=== PATIENT | male | born 1935 | race Caucasian/White ===

== ENCOUNTER → 2017-07-02 | Outpatient (CLI) | payer MEDICARE, OTHER | LOC: GMAJ 11:29 | PROVIDERS: ATTEND Family Medicine | DX: Z12.5 Encounter for screening for malignant neoplasm of prostate (principal) ==

== ENCOUNTER → 2017-10-29 | Outpatient (CLI) | payer OTHER | LOC: GMAJ 14:20 | PROVIDERS: ATTEND Family Medicine | DX: N40.1 Benign prostatic hyperplasia with lower urinary tract symptoms (principal) ==

== ENCOUNTER → 2018-10-14 | Outpatient (CLI) | payer MEDICARE, OTHER | LOC: GMAJ 10:17 | PROVIDERS: ATTEND Family Medicine | DX: N40.1 Benign prostatic hyperplasia with lower urinary tract symptoms (principal); E29.1 Testicular hypofunction ==

== ENCOUNTER 2018-11-17 05:43 | Day surgery (SDC) | payer MEDICARE, OTHER ==
[2018-11-17] MEDS ORDERED: MIDAZOLAM INJ 2 MG/2 ML VIAL ONE (11:51)
[2018-11-17] MEDS ORDERED: PROPARACAINE 0.5% OPHTH SOL 15 ML BTTL RIGHT_EYE ONE (11:53)
[2018-11-17] MEDS ORDERED: DEXAMETHASONE 0.1% OPHTH SOL 1 DROP RIGHT_EYE ONE ×2 (12:06→12:20)
[2018-11-17] MEDS ORDERED: LIDOCAINE 1% MPF 2 ML VIAL INJ ONE (12:06)
[2018-11-17] MEDS ORDERED: MOXIFLOXACIN HCL (OPHTH) 1 DROP DROPS RIGHT_EYE ONE ×2 (12:06→12:18)
[2018-11-17] MEDS ORDERED: BRIMONIDINE 0.2% OPHTH DROPS RIGHT_EYE ONE ×2 (12:07→12:20)
[2018-11-17] MEDS ORDERED: TOBRAMYCIN SULF 0.3 % OPHT SOL 1 DROP RIGHT_EYE ONE ×2 (12:07→12:20)
== END 2018-11-17 13:08 | disposition home or self-care (01) ==
LOC: AMB 05:43
PROVIDERS: ATTEND Ophthalmology
DX: H25.11 Age-related nuclear cataract, right eye (principal); Z79.01 Long term (current) use of anticoagulants; Z79.899 Other long term (current) drug therapy
CPT/HCPCS: 00142; 66984; J2250

== ENCOUNTER 2018-11-21 05:38 | Day surgery (SDC) | payer MEDICARE, OTHER ==
[2018-11-21] MEDS ORDERED: LIDOCAINE 1% 10 ML VIAL INJ ONE (07:00)
[2018-11-21] MEDS ORDERED: PROPOFOL 200 MG/20 ML VIAL IV ONE (07:00)
[2018-11-21] MEDS ORDERED: LACTATED RINGERS 1,000 ML ONE (08:14)
[2018-11-21] MEDS ORDERED: LACTATED RINGERS 1,000 ML BAG IV ONE (08:30)
[2018-11-21] MEDS ORDERED: MIDAZOLAM INJ 2 MG/2 ML VIAL ONE (08:39)
[2018-11-21] MEDS ORDERED: fentaNYL CITRATE INJ 50 MCG/ML AMP ONE (08:40)
[2018-11-21 11:45] VITALS: TEMP 96.6
[2018-11-21 11:46] VITALS: BP 123/64; O2SAT 97
--- NOTE | 2018-11-28 14:39 | OP ---
DATE OF PROCEDURE: 11/21/18 PREOPERATIVE DIAGNOSIS: 1. History of colonic polyps with recent changes in stool frequency and consistency. 2. Family history of colon cancer. 3. He had a colonoscopy 5 years ago with recommendation for followup. 4. He is on Eliquis, which has been stopped 72 hours prior to exam. PROCEDURE: 1. Colonoscopy. SURGEON: Maksim Hamilton MD PROCEDURE: Once adequate anesthesia was given, the digital rectal exam was performed, which was normal. The colonoscope was then placed without difficulty and advanced to the cecum. The appendiceal orifice was identified. The terminal ileum was not intubated. Upon withdrawal, there was an adequate prep. The right colon and transverse colon appeared normal. In the descending colon, there was an approximately 2.5 mm benign appearing polyp that was removed with forceps. There was no significant diverticulosis, but no evidence of bleeding or active inflammation. Retroflexion in the rectum was unrevealing and showed normal anorectal area. There was no evidence of intraoperative complications. The patient tolerated the procedure well. He was then awakened and taken to Recovery to be discharged. #[id number] MTDD
== END 2018-11-21 10:25 | disposition home or self-care (01) ==
LOC: AMB 05:38
PROVIDERS: ATTEND Surgery
DX: R19.4 Change in bowel habit (principal); D12.4 Benign neoplasm of descending colon; K59.00 Constipation, unspecified; I48.91 Unspecified atrial fibrillation; Z87.11 Personal history of peptic ulcer disease; Z86.010 Personal history of colon polyps; Z80.0 Family history of malignant neoplasm of digestive organs; Z79.01 Long term (current) use of anticoagulants; Z79.899 Other long term (current) drug therapy
CPT/HCPCS: 00811; 45380; 88305; J2250; J3010; J3490; J7120

== ENCOUNTER 2019-05-13 05:36 | Emergency (ER) | payer MEDICARE, OTHER ==
--- NOTE | 2019-05-13 05:58 | ED.PDOC ---
History of Present Illness - General Information Source: patient, family Exam Limitations: no limitations - History of Present Illness Abdominal Pain Onset Location: epigastric Pain Radiation: no radiation Quality: severe Timing/Duration: 4-6 hours Improving Factors: nothing Worsening Factors: nothing Associated Symptoms: nausea/vomiting, other - BLOATING/DISTENTION <Socrates Dowd Last Filed: 05/13/19 06:51> <Amor Macdonald - Last Filed: 05/13/19 07:42> - General Chief Complaint: Abdominal Pain Stated Complaint: upper mid quad pain Time Seen by Provider: 05/13/19 05:56 Review of Systems - Review of Systems Constitutional: States: no symptoms reported EENTM: States: no symptoms reported Respiratory: States: no symptoms reported Cardiology: States: no symptoms reported Gastrointestinal/Abdominal: States: see HPI, abdominal pain, nausea, vomiting Genitourinary: States: no symptoms reported Musculoskeletal: States: no symptoms reported Skin: States: no symptoms reported Neurological: States: no symptoms reported Endocrine: States: no symptoms reported Hematologic/Lymphatic: States: no symptoms reported All other Systems: Reviewed and Negative <Socrates Dowd - Last Filed: 05/13/19 06:51> Past Medical History (General) - Patient Medical History Hx Seizures: No Hx Stroke: No Hx Dementia: No Hx Asthma: No Hx of COPD: No Hx Cardiac Disorders: No Hx Congestive Heart Failure: No Hx Pacemaker: No Hx Hypertension: Yes Hx Thyroid Disease: No Hx Diabetes: No Hx Gastroesophageal Reflux: No Hx Renal Disease: No Hx Cancer: No Hx of HIV: No Hx Hepatitis C: No Hx MRSA: No - Vaccination History Hx Influenza Vaccination: Yes Hx Pneumococcal Vaccination: Yes - Social History Hx Tobacco Use: No Hx Alcohol Use: No Hx Substance Use: No Hx Substance Use Treatment: No Hx Depression: No Hx Physical Abuse: No Hx Emotional Abuse: No Hx Suspected Abuse: No <Socrates Dowd Last Filed: 05/13/19 06:51> Family Medical History - Family History Sister Name: brain tumor Living Status: <Socrates Dowd Last Filed: 05/13/19 06:51> Physical Exam - Physical Exam General Appearance: Alert, Well Nourished Eyes, Ears, Nose, Throat Exam: PERRL/EOMI, normal ENT inspection Neck: full range of motion, normal inspection Respiratory: chest non-tender, lungs clear, normal breath sounds, no respiratory distress Cardiovascular/Chest: normal peripheral pulses, regular rate, rhythm, no JVD Peripheral Pulses: No deficit Gastrointestinal/Abdominal: normal bowel sounds, soft, no organomegaly, no pulsatile mass, distended - OBESE BUT ALSO DISTENDED EPIGASTRIC. , tenderness - EPIGASTRIC, other - TYMPANIC TO PERCUSSION IN EPIGASTRIC. Back Exam: normal inspection, no CVA tenderness, no vertebral tenderness Extremity: normal range of motion, normal inspection Neurologic: continuous improvement coordinator II-XII nml as tested, no motor/sensory deficits, alert, oriented x 3 Skin Exam: normal color, warm/dry Lymphatic: no adenopathy <Socrates Dowd - Last Filed: 05/13/19 06:51> Progress - Results/Orders Results/Orders: LIPASE NEG. CMP NEG. CBC SHOWS ELEV WBC 14.[address] PENDING. I AM HANDING OFF THE REMAINDER OF THE PATIENT ENCOUNTER TO DR. VILLAGOMEZ. THANK YOU, DR. VILLAGOMEZ, FOR ASSUMING FURTHER CARE OF OUR PATIENT. <Socrates Dowd - Last Filed: 05/13/19 06:51> - Progress Progress: 05/13/19 07:35 Pt presents with onset of abdominal fullness and nausea at 2300 last night. Labs and VS reassuring. CT performed to evaluate for obstruction vs infection. No SBO or colitis. Shows possible early pneumonia. Will treat with Z pack for early pneumonia and zofran. CLD and will advance as tolerated and f/u with pcp in 1-2 days for recheck. - Results/Orders Results/Orders: CT ABD/PELVIS IMPRESSION: 1. Small focus of atelectasis or pneumonia in the left lung base. 2. No acute changes in the abdomen or pelvis. 05/13/19 06:11 Hold Metformin x 48Hrs [id number] Laboratory Results - last 24 hr 05/13/19 05/13/19 06:05 06:05 WBC 14.3 H RBC 4.49 L Hgb 13.9 L Hct 41.7 L MCV 93.0 MCH 31.1 H MCHC 33.4 RDW 13.5 Plt Count 251 MPV 7.7 Absolute Neuts (auto) 12.50 H Absolute Lymphs (auto) 1.20 Absolute Monos (auto) 0.50 Absolute Eos (auto) 0.00 Absolute Basos (auto) 0.00 Neutrophils % 87.2 H Lymphocytes % 8.5 L Monocytes % 3.8 Eosinophils % 0.2 L Basophils % 0.3 Sodium 135 Potassium 5.1 H Chloride 101 Carbon Dioxide 23 Anion Gap 16.1 BUN 20 H Creatinine 0.86 BUN/Creatinine Ratio 23.3 H Random Glucose 150 H Serum Osmolality 275.6 Calcium 9.4 Total Bilirubin 0.9 AST 22 ALT 18 Alkaline Phosphatase 46 Serum Total Protein 7.5 Albumin 4.1 Globulin 3.4 Albumin/Globulin Ratio 1.2 Lipase 28 <Amor Macdonlad - Last Filed: 05/13/19 07:42> Departure <Socrates Dowd - Last Filed: 05/13/19 06:51> - Departure Time of Disposition: 07:38 Diet: bland diet Activity: increase activity as tolerated <Amor Macdonald - Last Filed: 05/13/19 07:42> - Departure Clinical Impression: Neutrophilic leukocytosis, Nausea, Bloating symptom Abdominal pain Qualifiers: Abdominal location: epigastric Qualified Code(s): R10.13 - Epigastric pain Pneumonia Qualifiers: Pneumonia type: due to unspecified organism Laterality: left Lung location: lower lobe of lung Qualified Code(s): J18.9 - Pneumonia, unspecified organism Disposition: Discharge to Home or Self Care Condition: Good Departure Forms: ED Discharge - Pt. Copy, Patient Portal Self Enrollment Instructions: DI for Abdominal Pain-Adult Referrals: Maksim Marroquin MD [Primary Care Provider] - 1-2 Days Prescriptions: Ondansetron [Ondansetron Odt] 4 mg PO Q6HR PRN #12 tab PRN Reason: Nausea Azithromycin [Zithromax Z-Mustapha] 250 mg PO DAILY #6 tab Home Medications: Ambulatory Orders Apixaban [Eliquis] 1 tablet PO BID 11/17/18 Doxazosin Mesylate 4 mg PO DAILY 11/17/18 Lisinopril 1 tablet PO DAILY 11/17/18 Pantoprazole Sodium 40 mg PO DAILY 11/17/18 Azithromycin [Zithromax Z-Mustapha] 250 mg PO DAILY #6 tab 05/13/19 Ondansetron [Ondansetron Odt] 4 mg PO Q6HR PRN #12 tab 05/13/19
[2019-05-13] MEDS: ONDANSETRON INJ 4 MG/2 ML VIAL IV ONE (06:10)
[2019-05-13] MEDS: MORPHINE SULFATE INJ 10 MG/ML VIAL IV ONE (06:14)
--- NOTE | 2019-05-13 07:30 | CT ---
EXAM: CT Abdomen and Pelvis With Intravenous Contrast CLINICAL HISTORY: EPIGASTRIC PAIN AND DISTENTION TECHNIQUE: Axial computed tomography images of the abdomen and pelvis with intravenous contrast. Sagittal and coronal reformatted images were created and reviewed. This CT exam was performed using one or more of the following dose reduction techniques: automated exposure control, adjustment of the mA and/or kV according to patient size, and/or use of iterative reconstruction technique. COMPARISON: No relevant prior studies available. FINDINGS: Lung bases: Small focus of airspace consolidation in the left lower lobe. ABDOMEN: Liver: There is a 3.4 x 2.5 cm hepatic cyst in the right lobe. No further evaluation needed. Gallbladder and bile ducts: Unremarkable. No calcified stones. No ductal dilation. Pancreas: Unremarkable. No mass. No ductal dilation. Spleen: Unremarkable. No splenomegaly. Adrenals: Unremarkable. No mass. Kidneys and ureters: Five an 11 mm cyst right kidney and a 5 mm left renal cyst is noted. No stone. No hydronephrosis. Stomach and bowel: There is colonic diverticulosis. No inflammatory process. No evidence of gastrointestinal hemorrhage or obstruction. No mucosal thickening. PELVIS: Appendix: No findings to suggest acute appendicitis. Bladder: Unremarkable. No mass. Reproductive: Unremarkable as visualized. ABDOMEN and PELVIS: Intraperitoneal space: Unremarkable. No free air. No significant fluid collection. Bones/joints: No acute fracture. No dislocation. Soft tissues: Unremarkable. Vasculature: Unremarkable. No abdominal aortic aneurysm. Lymph nodes: Unremarkable. No enlarged lymph nodes. IMPRESSION: 1. Small focus of atelectasis or pneumonia in the left lung base. 2. No acute changes in the abdomen or pelvis. Electronically signed by: Barbara Islas MD 05/13/2019 7:28 AM [facility]
[2019-05-13] MEDS: ONDANSETRON ODT 8 MG TAB SL ONE (07:56)
[2019-05-13 07:59] VITALS: BP 150/78; TEMP 97; O2SAT 97
== END 2019-05-13 08:01 | disposition home or self-care (01) ==
LOC: ER 05:36
DX: J18.9 Pneumonia, unspecified organism (principal); R10.13 Epigastric pain; D72.828 Other elevated white blood cell count; R11.0 Nausea; R14.0 Abdominal distension (gaseous); I10 Essential (primary) hypertension; Z79.899 Other long term (current) drug therapy

== ENCOUNTER → 2019-09-21 | Outpatient (CLI) | payer MEDICARE, OTHER | LOC: GMAJ 16:46 | PROVIDERS: ATTEND Family Medicine | DX: M10.072 Idiopathic gout, left ankle and foot (principal); R60.0 Localized edema ==

== ENCOUNTER → 2019-11-12 | Outpatient (CLI) | payer MEDICARE, OTHER ==
--- NOTE | 2019-11-12 10:41 | MRI ---
EXAM DESCRIPTION: Brain w/o Contrast+ CLINICAL HISTORY: DIZZINESS COMPARISON: MRI scan without contrast February 2013. TECHNIQUE: Multiplanar, high-field MRI unit, multiple diffusion sequences, multiple conventional sequences without contrast. FINDINGS: Focal hyperintense FLAIR and T2-weighted signal in the subcortical white matter of the posterior left frontal lobe at the level of the lateral ventricular bodies. No change from the prior study. Smaller less well-defined foci bilateral frontal lobes also unchanged.. No hemorrhage, no cerebral edema, no midline shift.. Normal signal bilateral basal ganglia. Normal signal in the brainstem and cerebellar hemispheres. No hemorrhage, no cerebral edema, no mass-effect. Concordance of the diffusion and non-diffusion sequences with no diffusion restriction. Cortical sulci, ventricles, and other CSF spaces, and the subdural spaces are normally configured for patients age. No effacement or displacement. No midline shift. No extra-axial hemorrhage. Physiologic flow signal void in the major vessels of the [place], and the venous sinuses. Left vertebral artery is dominant. IACs are symmetric bilaterally. Normal signal in the bilateral mastoid air cells. No mass effect in the bilateral cerebellopontine angles. Pituitary gland occupies most of the sella. Base of the cerebellar tonsils is at the level of the foramen magnum. Paranasal sinuses are unremarkable; evaluation of the left maxillary antrum limited due to dental artifact. The bony calvarium is intact. IMPRESSION: 1. Small subcortical white matter lesions in the bilateral frontal lobes, largest posterior left frontal lobe at the level of the lateral ventricular bodies. No interval change from the prior study. No hemorrhage, no mass effect, no cerebral edema. 2. Normal noncontrast MRI diffusion study with no evidence of significant ischemia or acute or subacute infarction. Stable since the prior study. Electronically signed by: London Alfaro MD 11/12/2019 10:40 AM CDT
== END ==
LOC: MRI 07:00
PROVIDERS: ATTEND Family Medicine
DX: R90.82 White matter disease, unspecified (principal); R42 Dizziness and giddiness

== ENCOUNTER 2019-11-28 10:20 | Emergency (ER) | payer MEDICARE, OTHER ==
[2019-11-28] MEDS ORDERED: CLINDAMYCIN HCL CAP 150 MG CAP PO ONE (10:44)
--- NOTE | 2019-11-28 10:44 | ED.PDOC ---
History of Present Illness - General Chief Complaint: Cardiovascular Problem Stated Complaint: "I'm in A-Fib" Time Seen by Provider: 11/28/19 10:37 Additional Information: Patient is an 84-year-old male who presents to the ED with chief complaint of generalized weakness. Patient indicates he went to bed feeling fine and this morning when he awoke he felt generally weak and lightheaded. He specifically denies chest pain, shortness of breath, cough, nausea, vomiting, fever, abdominal pain. He denies headache. Patient has a history of atrial fibrillation but he indicates he is typically rate controlled and that he has felt this way before when he has been in atrial fibrillation. Last time patient was in atrial fibrillation and needed to be cardioverted. Patient indicates that he is compliant with his blood thinner medications. Patient also complains to pain to the left lower gumline. Patient went to his dentist earlier in the week because he thought he had a tooth ache and his x-ray of his tooth was negative and patient was sent home with no antibiotics. Since then he has developed discomfort and inflammation around the gumline. - History of Present Illness Allergies/Adverse Reactions: Allergies NO KNOWN ALLERGY Allergy (Unverified 11/28/19 10:41) Home Medications: Ambulatory Orders Apixaban [Eliquis] 1 tablet PO BID 11/17/18 Lisinopril 10 tablet PO DAILY 11/17/18 Review of Systems - Review of Systems Constitutional: States: see HPI, weakness. Denies: chills, fever EENTM: States: no symptoms reported Respiratory: States: no symptoms reported. Denies: cough, short of breath Cardiology: States: see HPI, palpitations. Denies: chest pain Gastrointestinal/Abdominal: States: no symptoms reported. Denies: abdominal pain, diarrhea, nausea, vomiting Musculoskeletal: States: no symptoms reported Skin: States: no symptoms reported. Denies: rash Neurological: States: see HPI. Denies: headache, weakness All other Systems: Reviewed and Negative Past Medical History (General) - Patient Medical History Hx Seizures: No Hx Stroke: No Hx Dementia: No Hx Asthma: No Hx of COPD: No Hx Cardiac Disorders: No Hx Congestive Heart Failure: No Hx Pacemaker: No Hx Hypertension: Yes Hx Thyroid Disease: No Hx Diabetes: No Hx Gastroesophageal Reflux: No Hx Renal Disease: No Hx Cancer: No Hx of HIV: No Hx Hepatitis C: No Hx MRSA: No - Vaccination History Hx Tetanus, Diphtheria Vaccination: Yes Hx Influenza Vaccination: Yes Hx Pneumococcal Vaccination: Yes - Social History Hx Tobacco Use: No Hx Chewing Tobacco Use: No Hx Alcohol Use: No Hx Substance Use: No Hx Substance Use Treatment: No Hx Depression: No Hx Physical Abuse: No Hx Emotional Abuse: No Hx Suspected Abuse: No Family Medical History - Family History Sister Name: brain tumor Living Status: Physical Exam - Physical Exam General Appearance: Alert, Comfortable, No apparent distress, Well Developed, Well Nourished Ears, Nose, Throat: normal ENT inspection, other - Approximately 1 cm area of erythema and edema to the buccal surface of the gum adjacent to the left mandibular pre-molar. Neck: supple, normal inspection Respiratory: chest non-tender, lungs clear, normal breath sounds, no respiratory distress, no accessory muscle use Cardiovascular/Chest: no edema, no gallop, no JVD, no murmur, irregularly irregular Peripheral Pulses: radial,right: 2+, radial,left: 2+ Gastrointestinal/Abdominal: normal bowel sounds, non tender, soft, no organomegaly, no pulsatile mass Back Exam: normal inspection, no CVA tenderness Extremity: normal range of motion, non-tender, normal inspection, no pedal edema Neurologic: machine feeder II-XII nml as tested, no motor/sensory deficits, alert, normal mood/affect, oriented x 3 Skin Exam: normal color, warm/dry Progress - Progress Progress: 11/28/19 10:48 Differential diagnosis includes but is not limited to atrial fibrillation, SVT, ACS, electrolyte disorder. 11/28/19 10:49 EKG: Atrial fibrillation, rate of 109, normal axis, normal QRS, T wave inversions leads I and aVL, normal ST segments. Negative STEMI. No old EKGs available for comparison. EKG read by Socrates Marroquin MD. 11/28/19 12:30 Patient reexamined. Patient briefly became hypotensive with systolic in the 80s after being placed on a Cardizem drip following Cardizem bolus. Cardizem drip was stopped patient was given 500 mL's of normal saline and his pressure readily increased into the 110s. Patient's troponin is normal and his labs are otherwise unremarkable. Patient is a fall risk presently with his atrial fibrillation and weakness and will require transfer for cardiology evaluation and treatment. Patient's sales operations lead is Dr. Socrates Pérez MD, at [facility] and patient has requested transfer to that facility. Spoken with ED physician Dr. Patino who accepts patient in ED to ED transfer. - Results/Orders Results/Orders: 11/28/19 10:45 EKG .ONCE 11/28/19 11:35 EKG .ONCE EKG Assessment ONCE Laboratory Results - last 24 hr 11/28/19 11/28/19 11/28/19 10:37 11:10 11:10 WBC 9.0 RBC 4.72 Hgb 14.8 Hct 43.1 MCV 91.3 MCH 31.5 H MCHC 34.4 RDW 13.5 Plt Count 277 MPV 7.6 Absolute Neuts (auto) 5.50 Absolute Lymphs (auto) 2.20 Absolute Monos (auto) 1.20 H Absolute Eos (auto) 0.10 Absolute Basos (auto) 0.00 Neutrophils % 61.4 Lymphocytes % 24.3 Monocytes % 13.2 H Eosinophils % 0.6 L Basophils % 0.5 PT 10.5 INR 1.06 Sodium 134 L Potassium 4.6 Chloride 102 Carbon Dioxide 26 Anion Gap 10.6 L BUN 15 Creatinine 0.84 BUN/Creatinine Ratio 17.9 Random Glucose 110 H Serum Osmolality 269.7 L Calcium 8.7 Total Bilirubin 0.7 AST 17 ALT 16 Alkaline Phosphatase 48 Troponin I Serum Total Protein 7.1 Albumin 3.7 Globulin 3.4 Albumin/Globulin Ratio 1.1 11/28/19 11:10 WBC RBC Hgb Hct MCV MCH MCHC RDW Plt Count MPV Absolute Neuts (auto) Absolute Lymphs (auto) Absolute Monos (auto) Absolute Eos (auto) Absolute Basos (auto) Neutrophils % Lymphocytes % Monocytes % Eosinophils % Basophils % PT INR Sodium Potassium Chloride Carbon Dioxide Anion Gap BUN Creatinine BUN/Creatinine Ratio Random Glucose Serum Osmolality Calcium Total Bilirubin AST ALT Alkaline Phosphatase Troponin I < 0.02 Serum Total Protein Albumin Globulin Albumin/Globulin Ratio Departure - Departure Clinical Impression: Atrial fibrillation with rapid ventricular response Time of Disposition: 12:34 Condition: Fair Instructions: DI for Chest Pain Home Medications: Ambulatory Orders Apixaban [Eliquis] 1 tablet PO BID 11/17/18 Lisinopril 10 tablet PO DAILY 11/17/18 Transfer to Outside Facility - Transfer Information Decision to Transfer Date: 11/28/19 Decision to Transfer Time: 12:35 Reason for Transfer: required specialist not available Accepting Provider:: Dr. Carey MD Accepting Facility: [facility]
[2019-11-28] MEDS ORDERED: ACETAMINOPHEN W/COD #3 TAB 1 EA TAB PO ONE (10:45)
[2019-11-28] MEDS ORDERED: diltiaZEM DRIP 125 MG in SODIUM CHLORIDE 0.9% 100ML 100 ML IVPB SCH (11:00)
--- NOTE | 2019-11-28 11:12 | RAD ---
EXAM: Chest,1 View CLINICAL INDICATION: Atrial fibrillation COMPARISON: 10/27/2007 FINDINGS: A single view of the chest was obtained. The heart size is normal. The pulmonary vascularity is unremarkable. The lungs are clear. There is no consolidation, infiltrate, pleural effusion, or pneumothorax. IMPRESSION: No evidence of active pulmonary disease. Electronically signed by: Aaron Hernandez MD 11/28/2019 11:11 AM CDT
[2019-11-28] MEDS ORDERED: SODIUM CHLORIDE 0.9% 1000ML 500 ML IVS ONE (11:32)
[2019-11-28 12:36] VITALS: O2SAT 96
[2019-11-28 13:02] VITALS: BP 109/82; TEMP 97.8
== END 2019-11-28 13:09 | disposition short-term general hospital (02) ==
LOC: ER 10:20
DX: I48.91 Unspecified atrial fibrillation (principal); R00.0 Tachycardia, unspecified; R53.1 Weakness; K08.89 Other specified disorders of teeth and supporting structures; I10 Essential (primary) hypertension; Z79.01 Long term (current) use of anticoagulants; Z79.899 Other long term (current) drug therapy
CPT/HCPCS: 36415; 71045; 80053; 84484; 85025; 85610; 93005; J7030; J7050

== ENCOUNTER → 2020-03-07 | Outpatient (CLI) | payer MEDICARE, OTHER | LOC: GMAL 14:36 | PROVIDERS: ATTEND Family Medicine | DX: M70.21 Olecranon bursitis, right elbow (principal) ==

== ENCOUNTER → 2020-03-21 | Outpatient (CLI) | payer MEDICARE, OTHER | LOC: GMAJ 15:08 | PROVIDERS: ATTEND Family Medicine | DX: M10.00 Idiopathic gout, unspecified site (principal); N40.1 Benign prostatic hyperplasia with lower urinary tract symptoms; I10 Essential (primary) hypertension ==

== ENCOUNTER 2020-04-14 05:41 | Day surgery (SDC) | payer MEDICARE, OTHER ==
[2020-04-14] MEDS ORDERED: LACTATED RINGERS 1,000 ML ONE (06:48)
[2020-04-14] MEDS ORDERED: PROPOFOL 200 MG/20 ML VIAL IV ONE (07:00)
[2020-04-14] MEDS ORDERED: MAGNESIUM SULFATE INJ 1 GM/2 ML VIAL ONE (07:00)
[2020-04-14] MEDS ORDERED: fentaNYL CITRATE INJ 50 MCG/ML 2 ML AMP ONE (10:14)
--- NOTE | 2020-04-14 10:52 | OP ---
DATE OF PROCEDURE: 04/14/20 PREOPERATIVE DIAGNOSIS: 1. Painful rectal bleeding. POSTOPERATIVE DIAGNOSIS: 1. Healed fissure. 2. Possible prostate nodule. 3. Constipation. PROCEDURE: 1. Examination under anesthesia. SURGEON: Maksim Hamilton MD ANESTHESIA: General. FINDINGS: As described. INDICATION: This is an 85-year-old male with a history of constipation who presented with painful rectal bleeding. He did have a colonoscopy within a couple of years, but has new painful bleeding and desires evaluation. It is consistent with a possible fissure as he has pain during bowel movements and bleeding after bowel movements. He is on blood thinner. In the office, no obvious fissure could be seen on local exam, so we are recommending examination under anesthesia. We discussed preoperatively no major procedure being performed. If we did have a large hemorrhoid, that we could band it safely on his blood thinners. If we saw a fissure and it is not giving him trouble and he is not constipated, so we could treat that medically. PROCEDURE: General anesthesia was induced in the lithotomy position. Externally, he had some non-thrombosed, mild external hemorrhoids circumferentially, a small amount of anal patchoulis. On digital rectal exam, he had a large amount of stool in the vault. Prostate exam revealed a possible small, maybe 1 cm irregularity in the superior right pole. He does have known benign prostatic hypertrophy, but I will ask him to pass this onto his primary care physician. Otherwise, rectal exam was normal with no evidence of masses. There was no blood in the vault. Anal speculum exam revealed a healed posterior anal fissure. I likely aggravated it just a little bit although we used the small speculum. No significant internal hemorrhoids amenable to banding were identified. Overall, exam revealing only the fissure which seems to be better when his bowel movements are good, so we will make recommendations on diet and hydration. He was awakened and taken to Recovery to be discharged. #[id number] cc: Maksim Marroquin MD [facility]
[2020-04-14 11:50] VITALS: BP 146/64; TEMP 97.3; O2SAT 99
== END 2020-04-14 11:40 | disposition home or self-care (01) ==
LOC: AMB 05:41
PROVIDERS: ATTEND Surgery
DX: K62.5 Hemorrhage of anus and rectum (principal); K64.4 Residual hemorrhoidal skin tags; K59.00 Constipation, unspecified; I48.91 Unspecified atrial fibrillation; M19.90 Unspecified osteoarthritis, unspecified site; N40.0 Benign prostatic hyperplasia without lower urinary tract symptoms; Z87.19 Personal history of other diseases of the digestive system; Z79.01 Long term (current) use of anticoagulants; Z79.899 Other long term (current) drug therapy
CPT/HCPCS: 00902; 45990; J3010; J3475; J3490; J7120